=== PATIENT | female | born 1975 | race Caucasian/White ===

== ENCOUNTER 2021-04-03 06:24 | Outpatient (REF) | payer BC, SELFPAY ==
--- NOTE | ~2021-04-03 | XR_ITS ---
EXAMINATION: KNEE X-RAY CLINICAL INFORMATION: Right knee pain COMPARISON: None TECHNIQUE: Standing AP view of both knees and lateral and sunrise view of the right knee FINDINGS: Right: No fracture, dislocation or bone lesion is seen. There is mild joint space narrowing at the medial femoral tibial and patellofemoral joints. There is an osteophyte at the quadriceps tendon insertion to the patella. There is no joint effusion. Standing AP view of the left knee demonstrates mild arthritis at the left medial femoral tibial joint. XR/XR knee RT 2V IMPRESSION: Mild arthritis.
--- NOTE | ~2021-04-03 | XR_ITS ---
EXAMINATION: KNEE X-RAY CLINICAL INFORMATION: Right knee pain COMPARISON: None TECHNIQUE: Standing AP view of both knees and lateral and sunrise view of the right knee FINDINGS: Right: No fracture, dislocation or bone lesion is seen. There is mild joint space narrowing at the medial femoral tibial and patellofemoral joints. There is an osteophyte at the quadriceps tendon insertion to the patella. There is no joint effusion. Standing AP view of the left knee demonstrates mild arthritis at the left medial femoral tibial joint. XR/XR knee standing BI IMPRESSION: Mild arthritis.
== END 2021-04-03 06:25 | disposition home or self-care (01) ==
LOC: HO.HOSX 06:24
PROVIDERS: Visit Provider Orthopaedic Surgery
DX: M22.2X1 Patellofemoral disorders, right knee (principal); M25.561 Pain in right knee; M25.562 Pain in left knee
CPT/HCPCS: 73560; 73565

== ENCOUNTER 2021-04-19 07:36 | Outpatient (REF) | payer OTHER, SELFPAY ==
[2021-04-19 08:39] LABS: MANUAL DIFF FLAG NO
[2021-04-19 08:49] LABS: Basophils Percent Auto 0.3 % (0-2); Eosinophils Absolute Auto 0.2 X10*3/uL (0.0-0.4); Eosinophils Percent Auto 2.7 % (0-4); Hematocrit 38.4 % (37-47); Hemoglobin 12.2 g/dl (12.0-16.0); Imm Gran Abs Auto 0.02 X10*3/uL (0.00-0.03); Imm Gran Pct Auto 0.3 % (0.0-0.4); Lymphocytes Absolute Auto 0.6 X10*3/uL (1.2-4.9); Lymphocytes Percent Auto 8.6 % (20-40); Mean Corpuscular HGB Conc 31.8 g/dl (31.0-35.0); Mean Corpuscular Hemoglobin 28.1 pg (27.0-33.0); Mean Corpuscular Volume 88.5 fL (80-98); Mean Platelet Volume 10.8 fL (9.4-12.3); Monocytes Absolute Auto 0.6 X10*3/uL (0.1-1.2); Monocytes Percent Auto 7.8 % (2-11); Neutrophils Absolute Auto 5.9 X10*3/uL (2.0-8.3); Neutrophils Percent Auto 80.3 % (45-73); Platelet Count 231 X10*3/uL (160-400); Red Blood Count 4.34 X10*6/uL (4.20-5.50); Red Cell Distribution Width 13.5 % (11.0-16.0); White Blood Count 7.3 X10*3/uL (4.8-10.8)
[2021-04-19 09:37] LABS: Alanine Aminotransferase 14 U/L (0-31); Albumin Level 4.4 g/dL (3.5-5.0); Alkaline Phosphatase 81 U/L (39-117); Anion Gap 12 (12-20); Aspartate Amino Transferase 15 U/L (5-31); Bilirubin Total 0.7 mg/dL (0.0-1.0); Blood Urea Nitrogen 15 mg/dL (9-16); Calcium 9.8 mg/dL (8.4-10.2); Carbon Dioxide 25 mmol/L (22-29); Chloride 106 mmol/L (96-108); Cholesterol 196 mg/dL; Estimated Glomerular Filt Rate 58; Glucose Random 87 mg/dL (60-115); HDL Cholesterol 64 mg/dL; Iron 34 mcg/dL (30-160); LDL Cholesterol Calculated 117 mg/dl; Percent Iron Saturation 11 % (15-50); Potassium 4.1 mmol/L (3.3-5.1); Sodium 139 mmol/L (135-145); Total Iron Binding Capacity 310 mcg/dL (228-428); Total Protein 7.2 g/dL (6.5-8.0); Triglycerides 75 mg/dL; Unsaturated Iron Binding 276 ug/dL
[2021-04-19 09:41] LABS: Ferritin 45 ng/mL (10-250); Thyroid Stimulating Hormone 2.93 uIU/mL (0.32-4.0)
== END 2021-04-19 07:37 | disposition home or self-care (01) ==
LOC: HO.LABR 07:36
PROVIDERS: PCP Physician Assistant; Visit Provider Physician Assistant
DX: Z13.220 Encounter for screening for lipoid disorders (principal); R23.2 Flushing; G25.81 Restless legs syndrome
CPT/HCPCS: 36415; 80053; 80061; 82728; 83540; 84443; 85025

== ENCOUNTER 2021-06-14 08:00 | Outpatient (RCR) | payer OTHER, SELFPAY ==
--- NOTE | 2021-05-03 16:06 | MHC.PT.EP ---
[facility] [place] Office [place] Office [place] Office [address] Aminta Moffett [address] [phone] F: [phone] F: [phone] F: [phone] F: [phone] Physical Therapy Plan of Care Date of Evaluation: Date of Surgery: N/A Diagnosis: patellofemoral pain syndrome, right knee Assessment: pt presents to physical therapy with pain, decreased range of motion, decreased strength, impaired functional mobility, impaired postural awareness, and gait deviations. pt is a good candidate for skilled PT due to age, potential remediation of impairments, typical disease/condition progression and prognosis, comorbidities, and motivation. pt would benefit from tailored strengthening and stretching exercise program, functional training, gait training, postural re-training, neuromuscular re-education, modalities as needed for pain, equipment safety demonstration. Frequency and Duration: The patient will be seen 2x/wk for 4 wks Short Term Goals: pt will be I w/ HEP to promote self-management of condition. pt will improve B hip ABD strength to 5/5 to promote neutral pelvic and knee angle during ambulation on even ground. Mcfp Goals: pt will report a statistically significant improvement in self-reported outcome measure, LEFI, to promote return to PLOF. pt will report <1/10 R knee pain w/ jumping activities >15 minutes to promote return to normal activity routine. Treatment Plan: Modalities to reduce pain, spasms and effusion. Manual therapy to restore motion and function. Therapeutic exercise to improve strength and flexibility. Neuromuscular re-education for posture and balance. Therapeutic activities to return to functional activities of daily living. Electronically signed by: Ghazal Khoury PT, DPT Please sign and return to therapist. Thank you for your referral.
--- NOTE | 2021-07-16 17:25 | MHC.PT.DC ---
[facility] [place] Office [place] Office [place] Office [address] Aminta Moffett [address] [phone] F: [phone] F: [phone] F: [phone] F: [phone] Physical Therapy Discharge Report Diagnosis: patellofemoral pain syndrome, right knee Date of Surgery: N/A Date of Evaluation: 05/03/21 Date of Discharge: 07/16/21 Treatments to Date: 12 Cancellations to Date: 0 No Shows to Date: 0 Discharge Status: Achieved Goals Improved Function Independent with HEP Discharge Summary: Pt torres improved awareness with maintaining neutral pelvis and jorge core during glute exer and reduced locking out in lumbar lordosis. Pt has been able to attend her varied exer classes and now her sxs are more muscular in origin/ training effect with reduced incidence of rT knee pain- she had mild spft tissue response Rt lat knee/ distal itb and we discussed perf FR as discussed / trialed in previous PT to manage her Rt ITB tightness. She has met her goals for self-mgmt, incr strength in hip abd and improved neutral pelvis/ spine w functional tasks. We will keep her chart open for 2-3 weeks and if she feels she is able to manage her symptoms then will D/C her chart at that time. pt verbalized understanding. Electronically signed by: Ghazal Khoury PT, DPT Please sign and return to therapist. Thank you for your referral.
== END 2021-07-16 17:26 | disposition home or self-care (01) ==
LOC: HO.PT 08:00
PROVIDERS: Visit Provider Orthopaedic Surgery
DX: M22.2X1 Patellofemoral disorders, right knee (principal)
CPT/HCPCS: 97033; 97110; 97140; 97161